=== PATIENT | male | born 1960 | race Caucasian/White ===

== ENCOUNTER 2018-01-14 10:48 | Emergency (ER) | payer BC ==
[~2018-01-14] VITALS: Ht 182.9 cm; Wt 99.8 kg
--- OUTSIDE RECORDS SUMMARY | 2018-01-14 10:49 | XMS REPORT ---
Author Author [facility] Address Unknown Phone Unavailable Care Team Providers Care Manager Corporate Responsibility Name Role Phone KENJI MARIE Unavailable Unavailable JENIFFER SHERWOOD Unavailable Unavailable Problems This patient has no known problems. Allergies, Adverse Reactions, Alerts This patient has no known allergies or adverse reactions. Medications This patient has no known medications. Results Test Description Test Time Test Comments Text Results Atomic Results Result Comments CYTOMEGALOVIRUS ANTIBODY, IGG 2017-12-04 14:36:00 CYTOMEGALOVIRUS IGG ANTIBODY (BEAKER) (test wvnp=785) Negative CYTOMEGALOVIRUS ANTIBODY, [id number] 14:36:00* Test Item Value Reference Range Comments CYTOMEGALOVIRUS IGM ANTIBODY (BEAKER) (test gruy=231) Negative EBV-VCA ANTIBODY, [id number] 14:36:00* Test Item Value Reference Range Comments DAYAN-COOPER VCA IGG (BEAKER) (test zkec=076) Positive EBV-VCA ANTIBODY, [id number] 14:36:00* Test Item Value Reference Range Comments DAYAN-COOPER VCA IGM (BEAKER) (test kpmr=203) Positive URINE [id number] 15:25:00* Test Item Value Reference Range Comments CULTURE (BEAKER) (test bkoo=9161) Amikacin (test code=1) Aztreonam (test code=32) Cefepime (test code=51) Cefoxitin (test code=68) Ceftazidime (test code=27) Ceftriaxone (test code=52) Ertapenem (test code=38) Gentamicin (test code=18) Levofloxacin (test code=22) Meropenem (test code=34) Nitrofurantoin (test code=23) Piperacillin + Tazobactam (test code=29) Tetracycline (test code=2) Tobramycin (test code=25) Trimethoprim + Sulfamethoxazole (test code=47) CULTURE (BEAKER) (test pfrk=4130) 10-19,000 col/mL Enterobacter aerogenes <10,000 col/mL skin floraHEPATITIS C PCR, [id number] 10:44:00* Test Item Value Reference Range Comments HCV RESULT COMPONENT (CASIMIRO) (test jxmf=5713) HCV RNA not detected HCV RNA not detected This test uses a Real-Time Polymerase Chain Reaction (RT-PCR) methodology and was performed using HOLLY Ampliprep/HOLLY TaqMan HCV test kit version 2.0 ( Analy [employer]).Reportable range for this assay is 15 - 100,000, 000 IU per mL (1.18 - 8.00 Log IU/mL).This test uses a Real-Time Polymerase Chain Reaction (RT-PCR) methodology and was performed using HOLLY Ampliprep/ HOLLY TaqMan HCV test kit version 2.0 ([employer]) .Reportable range for this assay is 15 - 100,000,000 IU per mL (1.18 - 8.00 Log IU/mL).[id number] 17:06:00* Test Item Value Reference Range Comments RPR SCREEN (CASIMIRO) (test tgbr=836) Nonreactive Nonreactive CT, CTA [id number] 16:49:00SPDE Billing Flag for donor testing and UNOS Follow Up Billing Flag for Post Donation care.CTA of abdomen and pelvis with and without contrast to visually display the aorta, renal arteries, iliac, and kidneys to be able to follow in the OR during donor nephrectomy. Please describe venous anatomy of both kidneys in all cases. Please measure distance from aorta to renal artery bifurcation. If pt is allergic to iodine, follow protocol prior to testing. Please provide 3-D reconstruction.[facility] HospitalAddendum BeginsREPORT STATUS:A Addendum: The non vascular findings were reviewed by the obiee consultant radiologist. A cyst is identified in the right upper kidney. No enhancing mass is seen. There is no hydronephrosis. The urinary bladder is incompletely distended with contrast but is otherwise unremarkable. Tiny cysts are identified in the liver. The spleen, pancreas, gallbladder, and adrenals are unremarkable. The bowel is not obstructed. Surgical clips are identified in the right pelvis, likely from inguinal hernia repair. There are some degenerative changes in the spine. Tiny nodules versus scars are identified in the left lung base. IMPRESSION 1. Please refer to the CONCLUSIONS section for the vascular findings. 2. Small right kidney cyst. No enhancing kidney mass. Signed: Panda Good MDReport Verified Date/Time: 12/01/2017 16:49:[address] angiography of the abdominal aorta and renal arteries, 01 December 2017. INDICATION: This is a 57 year old male being evaluated as a potential renal donor. This study is performed in an attempt to avoid an invasive procedure. TECHNIQUE: Spiral acquisition before and during intravenous contrast administration using a Rodirgo [address] scanner. Images were obtained before and during the dynamic passage of intravenous contrast material. Multi-planar 3-D volume-rendering reconstruction was performed using an independent workstation interactively by the interpreting physician as well as the 3-D specialist for optimal visualisation of the vital anatomy for renal transplantation. Please refer to the contrast sheet scanned in the EPIC system for the amount and route of contrast given. This exam was performed according to our departmental dose-optimisation programme, which includes automated exposure control, adjustment of the mA and/or kV according to patient size and/or use of iterative reconstruction technique. Dose modulation, iterative reconstruction, and/or weight based adjustment of the mA/kV was utilized to reduce the radiation dose to as low as reasonably achievable. FINDINGS: VASCULAR: No acute abdominal aortic pathology is identified. However , there is noncalcific atherosclerosis identified in the posterior aspect of the distal infrarenal abdominal aorta image 101. Quantitative dimensions of the abdominal aorta are as follows: 2.1 cm at the mesenteric segment; 1.8 cm at the renal segment; and 1.8 cm at the aortic bifurcation. The visualized portion of the pelvic arteries are widely patent. The common iliac, external iliac, and the common femoral arteries are patent. Mild atherosclerosis is identified in the proximal left common iliac artery. The associated pelvic veins are unremarkable. There are single left and right renal arteries that are widely patent. The left renal artery bifurcates at 3.7 cm from the origin of the aorta. The right renal artery bifurcates at 7.6 mm from the origin of the aorta. The left renal artery measure 3.7 x 5.9 mm in diameter. The right renal artery measures 5.7 x 4.4 mm at its takeoff. There are single left and right renal veins that drain normally into inferior vena cava (i.e. the left renal vein is anterior to the IVC). The left renal vein enters the IVC with a calibre of 12.1 x 10.4 mm and the right renal vein enters the IVC will a calibre of 13.8 x 10.1 mm. In addition, there is another smaller right renal vein inferiorly located approximately 2 cm below the main renal vein, and to the IVC with a diameter of approximately 4 to 5 mm. The coeliac axis, SMA, and CODIE are widely patent. Single left and right renal veins are seen draining normally into the IVC. The visualised mesenteric veins are unremarkable. The right kidney measures 10.4 cm in length and with a parenchymal volume of 176 cc. The left kidney measures 11.4 cm in length and with a parenchymal volume of 180 cc. Single left and right ureters are present. CONCLUSIONS: 1. Atherosclerosis identified abdominal aorta especially at the infrarenal level with no acute aortic pathology or aneurysmal dilation identified. Noncalcific atherosclerosis identified in the distal infrarenal abdominal aorta. 2. Single left and right renal arteries that are widely patent. Early branching is seen in the right renal artery. Single left and two right renal veins draining normally into the IVC. 3. Other findings as described above. 4. An addendum will be dictated regarding the non-vascular findings as the Patient Support Representative Radiologist. Signed: Morgan Joseort Verified Date/Time: 12/01/2017 16:09:01 Reading Location: [place] [address] Cardiology MRI TININE [id number] 16:00:00* Test Item Value Reference Range Comments CREATININE CLEARANCE (BEAKER) (test rabp=979) 108.9 mL/min 70.0-140.0 VOLUME, TOTAL (BEAKER) (test oogd=7304) 2650 ml CREATININE URINE (BEAKER) (test maxo=974) 75.4 mg/dL [id number] (BEAKER) (test odll=8225) Rachelle Gonzalez MD (electronic signature) PROTEIN, 24 HOUR [id number] 10:29:00* Test Item Value Reference Range Comments PROTEIN, 24HR URINE (BEAKER) (test eoub=6108) < mg/24hr 0-300 VOLUME, TOTAL (BEAKER) (test vbmv=9139) 2650 ml PROTEIN, URINE (BEAKER) (test vonl=4416) < mg/dL 0-14 MICROALBUMIN, 24 HOUR [id number] 10:28:00* Test Item Value Reference Range Comments VOLUME, TOTAL (BEAKER) (test tvcp=0229) 2650 ml MICROALBUMIN URINE (BEAKER) (test yjpq=8739) < mg/dL MICROALBUMIN 24 HOUR URINE (BEAKER) (test eims=890) < mg/24 hrs 0-30 HEPATITIS B SURFACE [id number] 09:52:00* Test Item Value Reference Range Comments HEPATITIS B SURFACE ANTIBODY (BEAKER) (test xxpd=683) < mIU/mL <8.0 URINALYSIS W/ [id number] 09:38:00* Test Item Value Reference Range Comments COLOR (BEAKER) (test bvjv=586) Light Yellow CLARITY (BEAKER) (test byrw=121) Clear SPECIFIC GRAVITY UA (BEAKER) (test hljk=725) 1.009 1.001-1.035 PH UA (BEAKER) (test vqrv=061) 5.0 5.0-8.0 PROTEIN UA (BEAKER) (test wpca=975) Negative Negative GLUCOSE UA (BEAKER) (test lwun=327) Negative Negative KETONES UA (BEAKER) (test rpjo=634) Negative Negative BILIRUBIN UA (BEAKER) (test eput=293) Negative Negative BLOOD UA (BEAKER) (test bfle=779) Negative Negative NITRITE UA (BEAKER) (test ypkq=164) Negative Negative LEUKOCYTE ESTERASE UA (BEAKER) (test ymih=225) Negative Negative UROBILINOGEN UA (BEAKER) (test drum=564) 0.2 mg/dL 0.2-1.0 RBC UA (BEAKER) (test zclh=574) < /HPF WBC UA (BEAKER) (test wjfl=054) 0 /HPF SOURCE(BEAKER) (test rchd=1304) [id number] 09:32:00* Test Item Value Reference Range Comments PROSTATE SPECIFIC ANTIGEN (BEAKER) (test oxil=256) 0.6 ng/mL 0.0-4.0 HEPATITIS B SURFACE [id number] 09:32:00* Test Item Value Reference Range Comments HEPATITIS B SURFACE ANTIGEN (2) (BEAKER) (test bgej=9384) Nonreactive Nonreactive HEPATITIS B CORE ANTIBODY, [id number] 09:32:00* Test Item Value Reference Range Comments HEPATITIS B CORE IGM ANTIBODY (Qnary) (test khsy=623) Nonreactive Nonreactive HIV-1 ANTIGEN WITH HIV-1/2 [id number] 09:32:00* Test Item Value Reference Range Comments HIV-1 ANTIGEN WITH HIV 1\T\2 ANTIBODY (2) (Qnary) (test lecq=4095) Nonreactive Nonreactive PT/[id number] 09:17:00* Test Item Value Reference Range Comments PROTIME (Qnary) (test yhrk=136) 13.1 seconds 11.7-14.7 INR (Qnary) (test gnvw=459) 1.0 <=5.9 PARTIAL THROMBOPLASTIN TIME (VastrmAKER) (test otbz=706) 34.1 seconds 22.5-36.0 RECOMMENDED COUMADIN/WARFARIN INR THERAPY RANGESSTANDARD DOSE: 2.0 - 3.0 Includes: PROPHYLAXIS for venous thrombosis, systemic embolization; TREATMENT for venous thrombosis and/or pulmonary embolus.HIGH RISK: Target INR is 2.5-3.5 for patients with mechanical heart valves.[id number] 09:12:00* Test Item Value Reference Range Comments PHOSPHORUS (CASIMIRO) (test doqv=223) 3.0 mg/dL 2.3-4.7 [id number] 09:12:00* Test Item Value Reference Range Comments MAGNESIUM (Qnary) (test ijgy=197) 2.1 mg/dL 1.6-2.6 LIPID [id number] 09:12:00* Test Item Value Reference Range Comments TRIGLYCERIDES (VastrmAKER) (test ikjs=823) 122 mg/dL CHOLESTEROL (VastrmAKER) (test msfo=264) 207 mg/dL HDL CHOLESTEROL (Qnary) (test scsr=979) 37 mg/dL LDL CHOLESTEROL CALCULATED (Qnary) (test wclr=398) 146 mg/dL Triglyceride Reference Range: Low Risk <150 Borderline 150-199 High Risk 200-499 Very High Risk >=500Cholesterol Reference Range: Low Risk <200 Borderline 200-239 High Risk >240HDL Cholesterol Reference Range: Low Risk >=60 High Risk <40LDL Cholesterol Reference Range: Optimal <100 Near Optimal 100-129 Borderline 130-159 High 160-189 Very High >=190 [id number] 09:12:00* Test Item Value Reference Range Comments CREATININE (BEAKER) (test vghz=647) 0.98 mg/dL 0.57-1.25 EGFR (BEAKER) (test qdtb=6399) 79 mL/min/1.73 sq m ESTIMATED GFR IS NOT ACCURATE CREATININE CLEARANCE IN PREDICTING GLOMERULAR FILTRATION RATE. ESTIMATED GFR IS NOT APPLICABLE FOR DIALYSIS PATIENTS. GAMMA GLUTAMYL TRANSFERASE (GGT)2017-12-01 09:12:00* Test Item Value Reference Range Comments GAMMA GLUTAMYL TRANSFERASE (BEAKER) (test dvmv=132) 24 U/L 9-64 LACTATE DEHYDROGENASE (LDH)2017-12-01 09:12:00* Test Item Value Reference Range Comments LACTATE DEHYDROGENASE (BEAKER) (test tysh=411) 164 U/L 125-220 RAD, CHEST, 2 [id number] 09:10:00SPDE Billing Flag for donor testing and UNOS Follow Up Billing Flag for Post Donation care.Reason for Exam:->Potential living donor for kidney transplantLocation->[facility] HospitalFINAL REPORT Chest two views INDICATION: Potential living donor for kidney transplant COMPARISON: None available IMPRESSION: There is no focal consolidation, vascular congestion, pleural effusion, or pneumothorax. Right diaphragm is mildly elevated. The cardiomediastinal silhouette is unremarkable. Left shoulder prosthesis is present. There are degenerative spine changes. Signed: Marian Srinivasan MDReport Verified Date/Time: 12/01/2017 09:10:26 Reading Location: [facility] Radiology Reading Room E [id number] 13:23:00* Test Item Value Reference Range Comments CULTURE (BEAKER) (test qldq=6709) <10,000 col/mL skin sita URINALYSIS W/ [id number] 12:25:00* Test Item Value Reference Range Comments COLOR (BEAKER) (test qrrd=190) Yellow CLARITY (BEAKER) (test vdtx=329) Clear SPECIFIC GRAVITY UA (BEAKER) (test tbkr=512) 1.016 1.001-1.035 PH UA (BEAKER) (test hdmd=706) 5.5 5.0-8.0 PROTEIN UA (BEAKER) (test yipa=801) Negative Negative GLUCOSE UA (BEAKER) (test wjth=661) Negative Negative KETONES UA (BEAKER) (test duns=270) Negative Negative BILIRUBIN UA (BEAKER) (test svwe=334) Negative Negative BLOOD UA (BEAKER) (test hbht=855) Negative Negative NITRITE UA (BEAKER) (test buka=599) Negative Negative LEUKOCYTE ESTERASE UA (BEAKER) (test ebih=543) Negative Negative UROBILINOGEN UA (BEAKER) (test enyr=917) 0.2 mg/dL 0.2-1.0 RBC UA (BEAKER) (test uhbd=915) 2 /HPF WBC UA (BEAKER) (test osen=709) 0 /HPF MUCUS (BEAKER) (test uqml=4788) Occasional SOURCE(BEAKER) (test qjrg=5848) CREATININE, RANDOM [id number] 12:00:00* Test Item Value Reference Range Comments CREATININE URINE (BEAKER) (test uhej=411) 141.0 mg/dL Reference Range: No NormalsPROTEIN, RANDOM [id number] 12:00:00* Test Item Value Reference Range Comments PROTEIN, URINE (BEAKER) (test pdfu=7470) 8 mg/dL 0-14 MICROALBUMIN, RANDOM [id number] 12:00:00* Test Item Value Reference Range Comments MICROALBUMIN URINE (BEAKER) (test zfir=7111) 0.5 mg/dL Reference Range: No NormalsHEPATIC FUNCTION [id number] 11:54:00* Test Item Value Reference Range Comments TOTAL PROTEIN (BEAKER) (test yojz=198) 7.0 gm/dL 6.0-8.3 ALBUMIN (BEAKER) (test pjts=2758) 3.9 g/dL 3.5-5.0 BILIRUBIN TOTAL (BEAKER) (test ublc=681) 0.3 mg/dL 0.2-1.2 BILIRUBIN DIRECT (BEAKER) (test ttsc=596) 0.1 mg/dL 0.1-0.5 ALKALINE PHOSPHATASE (BEAKER) (test ufhj=854) 41 U/L 40-150 AST (SGOT) (BEAKER) (test uzxn=114) 23 U/L 5-34 ALT (SGPT) (BEAKER) (test kkwq=645) 22 U/L 6-55 BASIC METABOLIC [id number] 11:54:00* Test Item Value Reference Range Comments SODIUM (BEAKER) (test lzyd=287) 138 meq/L 136-145 POTASSIUM (BEAKER) (test vpqe=888) 4.4 meq/L 3.5-5.1 CHLORIDE (BEAKER) (test szqi=488) 108 meq/L 98-107 CO2 (BEAKER) (test mssk=836) 22 meq/L 22-29 BLOOD UREA NITROGEN (BEAKER) (test ueht=104) 16 mg/dL 7-21 CREATININE (BEAKER) (test jdzs=789) 0.95 mg/dL 0.57-1.25 GLUCOSE RANDOM (BEAKER) (test prig=921) 76 mg/dL 70-105 CALCIUM (BEAKER) (test bnqa=826) 9.3 mg/dL 8.4-10.2 EGFR (BEAKER) (test jdvc=8059) 81 mL/min/1.73 sq m ESTIMATED GFR IS NOT ACCURATE CREATININE CLEARANCE IN PREDICTING GLOMERULAR FILTRATION RATE. ESTIMATED GFR IS NOT APPLICABLE FOR DIALYSIS PATIENTS. CBC W/PLT COUNT & AUTO [id number] 11:18:00* Test Item Value Reference Range Comments WHITE BLOOD CELL COUNT (BEAKER) (test wzah=843) 8.0 K/ L 3.5-10.5 RED BLOOD CELL COUNT (BEAKER) (test aizr=365) 4.84 M/ L 4.63-6.08 HEMOGLOBIN (BEAKER) (test mkcs=295) 15.3 GM/DL 13.7-17.5 HEMATOCRIT (BEAKER) (test qdzt=205) 45.8 % 40.1-51.0 MEAN CORPUSCULAR VOLUME (BEAKER) (test fund=390) 94.6 fL 79.0-92.2 MEAN CORPUSCULAR HEMOGLOBIN (BEAKER) (test toww=133) 31.6 pg 25.7-32.2 MEAN CORPUSCULAR HEMOGLOBIN CONC (BEAKER) (test buks=789) 33.4 GM/DL 32.3- 36.5 RED CELL DISTRIBUTION WIDTH (BEAKER) (test cqrv=567) 14.1 % 11.6-14.4 PLATELET COUNT (BEAKER) (test jbeg=516) 239 K/CU MM 150-450 MEAN PLATELET VOLUME (BEAKER) (test lodp=880) 11.2 fL 9.4-12.4 NUCLEATED RED BLOOD CELLS (BEAKER) (test rdcf=756) 0 /100 WBC 0-0 NEUTROPHILS RELATIVE PERCENT (BEAKER) (test mcep=368) 69 % LYMPHOCYTES RELATIVE PERCENT (BEAKER) (test sunz=928) 21 % MONOCYTES RELATIVE PERCENT (BEAKER) (test cgwm=855) 7 % EOSINOPHILS RELATIVE PERCENT (BEAKER) (test mukm=046) 2 % BASOPHILS RELATIVE PERCENT (BEAKER) (test htxb=933) 1 % NEUTROPHILS ABSOLUTE COUNT (BEAKER) (test cgsw=012) 5.49 K/ L 1.78-5.38 LYMPHOCYTES ABSOLUTE COUNT (BEAKER) (test rrbk=380) 1.63 K/ L 1.32-3.57 MONOCYTES ABSOLUTE COUNT (BEAKER) (test coja=085) 0.58 K/ L 0.30-0.82 EOSINOPHILS ABSOLUTE COUNT (BEAKER) (test bkim=629) 0.17 K/ L 0.04-0.54 BASOPHILS ABSOLUTE COUNT (BEAKER) (test gwlx=899) 0.06 K/ L 0.01-0.08 IMMATURE GRANULOCYTES-RELATIVE PERCENT (BEAKER) (test tuup=4128) 0 % 0-1
--- OUTSIDE RECORDS SUMMARY | 2018-01-14 10:49 | XMS REPORT ---
Author Author Admin, [place] [facility] Address Unknown Phone Unavailable Allergies, Adverse Reactions, Alerts Allergy Name Reaction Description Start Date Severity Status Provider POISON CHEO Critical Active Ignacio Lopez MD Conditions or Problems Problem Name Problem Code Onset Date Status Entry Date Provider Comment Standard Description Annotate Finger pain 729.5 Active Ignacio Lopez MD Pain in limb Medication List Medication Instructions Start Date Stop Date Generic Name NDC Status Provider Patient Instruction No Drug Therapy Prescribed - none known did ask Ignacio Lopez MD Vital Signs Date Name Value Unit Range Description blood pressure, diastolic 83 mm[Hg] BP mcarthur blood pressure, systolic 128 mm[Hg] BP sys height E&M 72 [in_us] Bdy height pulse rate E&M 97 /min Heart rate respiratory rate E&M 18 /min Resp rate temperature E&M 98.3 [degF] Body temperature weight E&M 227.38 [lb_av] Weight Measured Encounters Date Encounter Provider Code Facility 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
[2018-01-14] MEDS ORDERED: LIDOCAINE HCL 1% LOCAL INJ 20 ML VIAL ONE (10:59)
[2018-01-14] MEDS ORDERED: TETANUS/DIPHTHERIA TOX ADULT 0.5 ML SYR IM ONE (11:00)
[2018-01-14] MEDS ORDERED: LIDOCAINE HCL 1% LOCAL INJ 20 ML VIAL INJ ONE (11:00)
== END 2018-01-14 11:20 | disposition home or self-care (01) ==
LOC: ER 10:48
DX: S61.210A Laceration without foreign body of right index finger without damage to nail, initial encounter (principal); W26.0XXA Contact with knife, initial encounter; Y92.008 Other place in unspecified non-institutional (private) residence as the place of occurrence of the external cause
CPT/HCPCS: 12001; 90471; 90714; 99283; J2001